=== PATIENT | male | born 1955 | race Caucasian/White ===

== ENCOUNTER 2020-08-30 21:52 | Emergency (ER) | payer BC ==
[~2020-08-30] VITALS: Ht 172.7 cm; Wt 79.4 kg
[2020-08-30] MEDS ORDERED: LEVO100T10 PO (22:07)
[2020-08-30] MEDS ORDERED: ESCI10TA PO (22:07)
[2020-08-30] MEDS ORDERED: SIMV10TA98 PO (22:07)
[2020-08-30] MEDS ORDERED: OMEP40CA13 PO (22:07)
[2020-08-30 22:11] LABS: *BILIRUBIN,URIN 1+ (NEGATIVE); *BLOOD, URINE 3+ (NEGATIVE); *CLARITY,URINE CLOUDY (CLEAR); *COLOR,URINE Brown (YELLOW); *KETONES,URINE TRACE (NEGATIVE); *UROBILINOGEN,URINE 0.2 E.U./dl (NORMAL); LEUKOCYTE ESTERASE ,URINE NEGATIVE (NEGATIVE); NITRITE, URINE NEGATIVE (NEGATIVE); PH,URINE 6.5 (5.0-8.0); UGLUCOSE NEGATIVE (NEGATIVE)
--- NOTE | 2020-08-30 22:15 | NUR ---
Dr. Godinez at bedside for MSE
--- NOTE | 2020-08-30 22:18 | NUR ---
65 y/o male presents with Right sided flank pain. 09/07 - non-radiating - started 10 hours ago. States he had similar symptoms previously and it turned out to be a Kidney Stone. No SI/HI. Steady gait. A&Ox4. No chest pain, palpitations, diaphoresis, chills. Sinus Rhythm on monitor. So SOB, Saturation of >94% on Room Air. No dyspnea. GI/: Normoactive. Urine collected immediately. Very dark color, likely occult blood. No pain on urination. No N/D - did have an episode of emesis prior to arrival.
[2020-08-30 22:19] LABS: BACTERIA,URINE NONE SEEN /HPF (NONE SEEN); RBC,URINE TNTC /HPF (0-3); SQUAMOUS EPITHELIAL CELL,UR FEW /HPF (NONE SEEN)
[2020-08-30 22:57] VITALS: BP 110/71
[2020-08-30] MEDS ORDERED: SILO8CAP2 PO (23:01)
[2020-08-30] MEDS ORDERED: OXYC-133 PO (23:01)
[2020-08-30] MEDS ORDERED: HYDR-3980 PO ×2 (23:01)
--- NOTE | 2020-08-30 23:18 | NUR ---
Patient discharged to home in stable condition. Written and verbal after care instructions given. Patient verbalizes understanding of instructions. Stressed follow up or return to ER for worsening s/s. Belongings with patient. Instructed not to drive. Educated on all pertinent information regarding medications prescribed. VSS. Steady gait.
== END 2020-08-30 23:05 | disposition home or self-care (01) ==
LOC: ER 21:52
DX: N13.2 Hydronephrosis with renal and ureteral calculous obstruction (principal); E03.9 Hypothyroidism, unspecified; K21.9 Gastro-esophageal reflux disease without esophagitis; E78.5 Hyperlipidemia, unspecified; F32.9 Major depressive disorder, single episode, unspecified; Z79.899 Other long term (current) drug therapy; N40.0 Benign prostatic hyperplasia without lower urinary tract symptoms
CPT/HCPCS: A4663; J7030

== ENCOUNTER 2021-12-20 08:41 | Emergency (ER) | payer BC, OTHER ==
[~2021-12-20] VITALS: Ht 172.7 cm; Wt 83.9 kg
[~2021-12-20 08:41] MED LIST: ESCI10TA PO; HYDR-3980 PO; LEVO100T10 PO; OMEP40CA21 PO; SILO8CAP2 PO; SIMV10TA98 PO
--- NOTE | 2021-12-20 08:59 | NUR ---
PT IS IN ROOM #2B. DR SKY EVALUATED THE PT.
[2021-12-20] MEDS ORDERED: DOCU-141 PO (09:03)
[2021-12-20] MEDS ORDERED: POLY119P2 PO (09:03)
--- NOTE | 2021-12-20 09:22 | NUR ---
PT WAS D/Cd TO HOME. D/C INSTRUCTIONS GIVEN TO THE PT BY DR BORJAS.
[2021-12-20 09:23] VITALS: BP 133/71
== END 2021-12-20 09:23 | disposition home or self-care (01) ==
LOC: ER 08:44
DX: K59.09 Other constipation (principal); E78.5 Hyperlipidemia, unspecified; E03.9 Hypothyroidism, unspecified; K21.9 Gastro-esophageal reflux disease without esophagitis; F32.A Depression, unspecified; Z79.899 Other long term (current) drug therapy
CPT/HCPCS: A4663

== ENCOUNTER 2022-04-16 05:32 | Emergency (ER) | payer OTHER ==
[~2022-04-16] VITALS: Ht 172.7 cm; Wt 77.1 kg
[~2022-04-16 05:32] MED LIST changes: +DOCU-141 PO; +POLY119P2 PO
[2022-04-16] MEDS ORDERED: BISA10SU61 RC (06:48)
--- NOTE | 2022-04-16 06:58 | NUR ---
Patient discharged to home in stable condition. Written and verbal after care instructions given. Patient verbalizes understanding of instructions. Stressed follow up or return to ER for worsening s/s. Patient is a/ox4, NAD noted. Patient is able to walk with steady gait
[2022-04-16 06:59] VITALS: BP 134/81
== END 2022-04-16 06:59 | disposition home or self-care (01) ==
LOC: ER 05:35
DX: K59.00 Constipation, unspecified (principal); E78.5 Hyperlipidemia, unspecified; E07.9 Disorder of thyroid, unspecified
CPT/HCPCS: 74018; A4663

== ENCOUNTER 2022-04-24 23:45 | Emergency (ER) | payer OTHER ==
[~2022-04-24] VITALS: Ht 172.7 cm; Wt 77.1 kg
[~2022-04-24 23:45] MED LIST changes: +BISA10SU61 RC
[2022-04-25] MEDS ORDERED: MAGNESIUM CITRATE 296 ML BOTTLE PO ONE (00:45)
[2022-04-25] MEDS ORDERED: MAGNESIUM HYDROXIDE 30 ML LIQUID UDC PO ONE (00:45)
[2022-04-25] MEDS ORDERED: MAGNESIUM HYDROXIDE 30 ML LIQUID UDC ONE (01:05)
[2022-04-25] MEDS ORDERED: MAGN296S70 PO (01:45)
[2022-04-25] MEDS ORDERED: MAGN400O6 PO (01:45)
[2022-04-25 02:34] VITALS: BP 115/70
== END 2022-04-25 02:32 | disposition home or self-care (01) ==
LOC: ER 23:45
DX: K59.09 Other constipation (principal); E78.5 Hyperlipidemia, unspecified; E07.9 Disorder of thyroid, unspecified; F32.A Depression, unspecified; Z79.899 Other long term (current) drug therapy
CPT/HCPCS: A4663

== ENCOUNTER 2022-06-10 01:01 | Emergency (ER) | payer OTHER ==
[~2022-06-10] VITALS: Ht 172.7 cm; Wt 74.8 kg
[~2022-06-10 01:01] MED LIST changes: +MAGN296S70 PO; +MAGN400O6 PO
--- NOTE | 2022-06-10 01:47 | NUR ---
DR Diaz at bedside, MSE in progress
[2022-06-10] MEDS ORDERED: IV NS 1000 ML 1,000 ML IV ONE (02:00)
[2022-06-10 02:15] LABS: HEMATOCRIT 41.4 % (36.7-47.1); MEAN CORPUSCULAR HEMOGLOBIN 34.3 uug (23.8-33.4); MEAN CORPUSCULAR VOLUME 98.5 fL (73.0-96.2); PLATELET COUNT (AUTO) 141 K/uL (152-348)
[2022-06-10 02:20] LABS: CREATININE 1.4 mg/dL (0.6-1.3); POTASSIUM 4.1 mmol/L (3.5-5.1)
[2022-06-10 02:26] LABS: BILIRUBIN,DIRECT 0.3 mg/dL (0.0-0.2); BILIRUBIN,TOTAL 1.2 mg/dL (0.2-1.0); TOTAL PROTEIN, SERUM 7.8 g/dL (6.4-8.2)
[2022-06-10] MEDS ORDERED: SWABABLE VALVE TRANSFER SET EA MC ONE (03:06)
[2022-06-10] MEDS ORDERED: IV NORMAL SALINE 250 ML IV ONE (03:06)
[2022-06-10] MEDS ORDERED: IOHEXOL 300MG/ML 100 ML INFUS..BTL ONE (03:06)
[2022-06-10 04:04] LABS: *BILIRUBIN,URIN NEGATIVE (NEGATIVE); *BLOOD, URINE 1+ (NEGATIVE); *CLARITY,URINE CLEAR (CLEAR); *COLOR,URINE YELLOW (YELLOW); *KETONES,URINE 2+ (NEGATIVE); *UROBILINOGEN,URINE 0.2 E.U./dl (NORMAL); LEUKOCYTE ESTERASE ,URINE NEGATIVE (NEGATIVE); NITRITE, URINE NEGATIVE (NEGATIVE); PH,URINE 6.5 (5.0-8.0); UGLUCOSE NEGATIVE (NEGATIVE)
[2022-06-10 04:25] LABS: BACTERIA,URINE NONE SEEN /HPF (NONE SEEN); SQUAMOUS EPITHELIAL CELL,UR NONE SEEN /HPF (NONE SEEN); WBC,URINE NONE SEEN /HPF (0-3)
[2022-06-10] MEDS ORDERED: LACT10SO3 PO (06:51)
[2022-06-10 07:08] VITALS: BP 120/78
== END 2022-06-10 07:09 | disposition home or self-care (01) ==
LOC: ER 01:08
DX: N13.2 Hydronephrosis with renal and ureteral calculous obstruction (principal); K59.00 Constipation, unspecified; E78.5 Hyperlipidemia, unspecified; E07.9 Disorder of thyroid, unspecified; F32.A Depression, unspecified; Z79.890 Hormone replacement therapy; Z79.899 Other long term (current) drug therapy
CPT/HCPCS: 99285; 74177; 96360; 80076; 80048; 81001; 83690; 85025; 36415; 93005; Q9967; J7040; A4663

== ENCOUNTER 2022-07-11 08:47 | Emergency (ER) | payer OTHER ==
[~2022-07-11] VITALS: Ht 172.7 cm; Wt 74.8 kg
[~2022-07-11 08:47] MED LIST changes: +LACT10SO3 PO
--- NOTE | 2022-07-11 08:59 | NUR ---
Dr. Smith at bedside for evaluation.
[2022-07-11] MEDS ORDERED: ZOLP5TAB2 PO (09:16)
--- NOTE | 2022-07-11 09:20 | NUR ---
Patient discharged to home in stable condition. Written and verbal after care instructions given. Patient verbalizes understanding of instructions. Stressed follow up or return to ER for worsening s/s.
[2022-07-11 09:25] VITALS: BP 112/71
== END 2022-07-11 09:20 | disposition home or self-care (01) ==
LOC: ER 08:53
DX: G47.00 Insomnia, unspecified (principal); K59.09 Other constipation; E78.5 Hyperlipidemia, unspecified; Z79.890 Hormone replacement therapy; E03.9 Hypothyroidism, unspecified; F32.A Depression, unspecified
CPT/HCPCS: A4663